=== PATIENT | female | born 1990 | race African-American/Black ===

== ENCOUNTER 2021-01-08 17:15 | Inpatient (IN) ==
[2021-01-08] MEDS ORDERED: ONDANSETRON 4 MG/2 ML VIAL IV PRN (17:48)
[2021-01-08] MEDS ORDERED: BUTORPHANOL 2 MG/ML VIAL IV PRN (17:48)
[2021-01-08] MEDS ORDERED: LACTATED RINGERS 1,000 ML IV SCH (18:00)
[2021-01-08 18:20] LABS: Basophils % 0.2 % (0.0-0.8); Eosinophils # 0.1 10*3/uL (0.0-0.87); Eosinophils % 0.4 % (0.00-10.9); Hematocrit 32.1 VOL% (35.7-47.0); Hemoglobin 9.4 GM/DL (12.0-16.0); Immature Granulocytes % 0.9 %; Immature Granulocytes Absolute 0.13 #; Lymphocytes # 2.1 10*3/uL (1.4-4.0); Lymphocytes % 15.3 % (21.3-54.2); Mean Corpuscular HGB Conc 29.3 GM/DL (32-36); Mean Corpuscular Volume 65.4 FL (87-102); Neutrophils % 77.2 % (38.7-73.9); Platelet Count 299 T/CUMM (130-400); Red Blood Count 4.91 MC/CUMM (3.8-5.5); Red Cell Distribution Width 14.7 % (9.3-17.3); White Blood Count 13.7 T/CUMM (4-12)
[2021-01-08 18:40] LABS: Albumin 2.5 G/DL (3.4-5.0); Bilirubin,Total 0.4 MG/DL (0.20-1.00); Calcium 8.5 MG/DL (8.5-10.1); Osmolality,Calculated 269.8 MOS/KG (273-304); Potassium 3.6 MMOL/L (3.5-5.1); Total Protein 7.8 G/DL (6.4-8.2)
[2021-01-08 18:53] LABS: Rubella Antibody IgG Result Reactive (NonReactive)
[2021-01-08] MEDS ORDERED: AMPICILLIN INJ 2,000 MG in SODIUM CHLORIDE 0.9% 100 ML IV ONE (20:00)
[2021-01-08] MEDS ORDERED: OXYTOCIN/LR 20 UNIT/1,000 ML BAG IV PRN (23:56)
[2021-01-08] MEDS ORDERED: AMPICILLIN INJ 1,000 MG in SODIUM CHLORIDE 0.9% 100 ML IV SCH (23:59)
[2021-01-09] MEDS: MEPERIDINE 50 MG/1 ML VIAL IV PRN ×2 (00:14→02:54)
[2021-01-09] MEDS ORDERED: LIDOCAINE 1% 50 ML VIAL ONE (02:51)
[2021-01-09] MEDS ORDERED: TRANEXAMIC ACID 1,000 MG/10 ML VIAL ONE (03:04)
[2021-01-09] MEDS ORDERED: miSOPROStoL 200 MCG TABLET ONE (03:04)
[2021-01-09] MEDS ORDERED: METHYLERGONOVINE 0.2 MG/1 ML AMP ONE (03:05)
[2021-01-09] MEDS ORDERED: CARBOPROST TROMETHAMINE 250 MCG/ML AMP IM ONE (03:05)
[2021-01-09 03:50] LABS: Cord Venous Blood HCO3 19.6 MMOL/L; Cord Venous Blood PCO2 38.2 MMHG; Cord Venous Blood PO2 19.1 MMHG
[2021-01-09] MEDS ORDERED: MAGNESIUM HYDROXIDE SUSP 30 ML UDCUP PO PRN (04:04)
[2021-01-09] MEDS ORDERED: ONDANSETRON 4 MG/2 ML VIAL IV PRN (04:04)
[2021-01-09] MEDS ORDERED: BISACODYL 10 MG SUPP RECTAL PRN (04:04)
[2021-01-09] MEDS ORDERED: LACTATED RINGERS 1,000 ML IV SCH (04:30)
[2021-01-09] MEDS: IBUPROFEN 800 MG TABLET PO PRN (05:47)
[2021-01-09] MEDS ORDERED: OXYTOCIN/LR 20 UNIT/1,000 ML BAG IV ONE ×2 (10:06→10:07)
[2021-01-09] MEDS: MULTIVITAMIN (PRENATAL) TABLET PO SCH (16:55)
[2021-01-09] MEDS: DOCUSATE SODIUM 100 MG CAPSULE PO SCH ×2 (16:55→22:26)
[2021-01-09] MEDS: FERROUS SULFATE 325 MG TABLET PO SCH (16:55)
[2021-01-09] MEDS: ACETAMINOPHEN 500 MG TABLET PO PRN (20:23)
[2021-01-10 05:42] LABS: Basophils % 0.3 % (0.0-0.8); Eosinophils # 0.2 10*3/uL (0.0-0.87); Eosinophils % 1.3 % (0.00-10.9); Hematocrit 29.2 VOL% (35.7-47.0); Hemoglobin 8.5 GM/DL (12.0-16.0); Immature Granulocytes % 0.8 %; Lymphocytes # 3.1 10*3/uL (1.4-4.0); Lymphocytes % 23.4 % (21.3-54.2); Mean Corpuscular HGB Conc 29.1 GM/DL (32-36); Mean Platelet Volume 12.2 FL (9.6-12.0); Monocytes % 5.4 % (1.7-12.7); Neutrophils % 68.8 % (38.7-73.9); Red Blood Count 4.49 MC/CUMM (3.8-5.5); Red Cell Distribution Width 14.6 % (9.3-17.3); White Blood Count 13.2 T/CUMM (4-12)
[2021-01-10 05:59] LABS: Platelet Count 258 T/CUMM (130-400)
[2021-01-10] MEDS: FERROUS SULFATE 325 MG TABLET PO SCH (08:52)
[2021-01-10] MEDS: MULTIVITAMIN (PRENATAL) TABLET PO SCH (08:52)
[2021-01-10] MEDS: DOCUSATE SODIUM 100 MG CAPSULE PO SCH ×2 (08:52→20:52)
[2021-01-10] MEDS: IBUPROFEN 800 MG TABLET PO PRN (14:53)
[2021-01-10] MEDS ORDERED: BENZOCAINE 20%/MENTHOL 0.5% SPRAY 56 GM CAN TOP PRN (14:57)
[2021-01-10] MEDS: ACETAMINOPHEN 500 MG TABLET PO PRN (21:07)
[2021-01-11] MEDS: MULTIVITAMIN (PRENATAL) TABLET PO SCH (08:37)
[2021-01-11] MEDS: DOCUSATE SODIUM 100 MG CAPSULE PO SCH (08:37)
[2021-01-11] MEDS ORDERED: IRON (CARBONYL)/VIT C/B12/FA TABLET PO SCH (09:00)
[2021-01-11] MEDS: IBUPROFEN 800 MG TABLET PO PRN (09:15)
[2021-01-11 11:44] VITALS: BP 149/86
== END 2021-01-11 13:40 | disposition home or self-care (01) | DRG 807 ==
LOC: N.LDOUT 17:15 → N.LD 17:26 → N.OB 01-09 09:03
PROVIDERS: ADMIT Obstetrics & Gynecology; ATTEND Obstetrics & Gynecology